=== PATIENT | female | born 1945 | race Caucasian/White ===

== ENCOUNTER 2017-03-07 11:19 | Emergency (ER) | payer OTHER, SELFPAY ==
[2017-03-07 11:22] VITALS: RESP 18; TEMP 98.2; O2SAT 98; BMI 36.6
--- NOTE | 2017-03-07 12:03 | ED PDOC ---
Arrival/HPI - General Historian: Patient, Carpet Cleaner - History of Present Illness Time/Duration: Prior to Arrival Symptom Onset: Sudden Symptom Course: Unchanged Quality: Aching Severity Level: 5 Activities at Onset: Light Context: Walking, Street - General Chief Complaint: Trauma Time Seen by Provider: 03/07/17 11:22 - History of Present Illness Narrative History of Present Illness (Text): 03/07/17 12:00 This is a 71Y Amharic speaking F with no significant PMH here for fall. Patient is Amharic speaking, table and desk finisher is at bedside. Patient reports she was walking on [address] and took a misstep. She fell on her knees and palms of her hands. She was able to get up on her own, but came to ED for the pain. She was not feeling dizzy at the time of the fall. The patient denies CP, SOB, numbness/ tingling, n/v/d, dysuria or hematuria. She denies hitting her head or loss of consciousness. The patient does not have a PMD or insurance. 03/07/17 12:04 (Shantal Houser) Past Medical History - Provider Review Nursing Documentation Reviewed: Yes - Cardiac Hx Cardiac Disorders: No - Pulmonary Hx Respiratory Disorders: No - Neurological Hx Neurological Disorder: No - HEENT Hx HEENT Disorder: No - Renal Hx Renal Disorder: No - Endocrine/Metabolic Hx Endocrine Disorders: No - Hematological/Oncological Hx Blood Disorders: No - Integumentary Hx Dermatological Disorder: No - Musculoskeletal/Rheumatological Hx Musculoskeletal Disorders: No - Gastrointestinal Hx Gastrointestinal Disorders: No - Genitourinary/Gynecological Hx Genitourinary Disorders: No - Psychiatric Hx Psychophysiologic Disorder: No Hx Substance Use: No - Surgical History Hx Cholecystectomy: Yes Hx Hysterectomy: Yes - Anesthesia Hx Anesthesia: Yes Hx Anesthesia Reactions: No Hx Malignant Hyperthermia: No Family/Social History - Physician Review Nursing Documentation Reviewed: Yes Family/Social History: Neoplasm/Cancer (breast) Smoking Status: Current Some Days Smoker Hx Alcohol Use: No Hx Substance Use: No Allergies/Home Meds Allergies/Adverse Reactions: Allergies No Known Allergies Allergy (Verified 03/07/17 11:41) Home Medications: Home Meds Medication Instructions Recorded Confirmed No Known Home Med 03/07/17 03/07/17 Review of Systems - Physician Review All systems were reviewed & negative as marked: Yes - Review of Systems Constitutional: Normal. absent: Fatigue, Fevers Eyes: Normal. absent: Vision Changes ENT: Normal. absent: Hearing Changes Respiratory: Normal. absent: SOB, Cough Cardiovascular: Normal. absent: Chest Pain, Palpitations Gastrointestinal: Normal. absent: Abdominal Pain, Diarrhea, Nausea, Vomiting Genitourinary Female: Normal. absent: Dysuria, Frequency, Hematuria Musculoskeletal: Arthralgias Skin: Other. absent: Rash, Pruritis (abrasion of hands and knees ) Neurological: Normal. absent: Headache Endocrine: Normal. absent: Diaphoresis Hemo/Lymphatic: Normal. absent: Adenopathy Psychiatric: Normal. absent: Anxiety, Depression Physical Exam Vital Signs Reviewed: Yes Temperature: Afebrile Blood Pressure: Normal Pulse: Regular Respiratory Rate: Normal Appearance: Positive for: Well-Appearing, Non-Toxic, Comfortable Pain Distress: None Mental Status: Positive for: Alert and Oriented X 3 - Systems Exam Head: Present: Atraumatic, Normocephalic Pupils: Present: PERRL Extroacular Muscles: Present: EOMI Conjunctiva: Present: Normal Mouth: Present: Moist Mucous Membranes Neck: Present: Normal Range of Motion Respiratory/Chest: Present: Clear to Auscultation, Good Air Exchange. No: Respiratory Distress, Accessory Muscle Use Cardiovascular: Present: Regular Rate and Rhythm, Normal S1, S2. No: Murmurs Abdomen: Present: Normal Bowel Sounds. No: Tenderness, Distention, Peritoneal Signs Back: Present: Normal Inspection Upper Extremity: Present: Tenderness, Other (scrapes on palms of hands bilaterally ). No: Cyanosis, Edema Lower Extremity: Present: Tenderness, Swelling (knees bilaterally ), Other ( abrasion on knees bilaterally no bleeding ) Neurological: Present: GCS=15, CN II-XII Intact, Speech Normal Skin: Present: Warm, Dry, Normal Color, Abrasion (palms and knees bilaterally ) . No: Rashes Psychiatric: Present: Alert, Oriented x 3, Normal Insight, Normal Concentration Vital Signs Temp Pulse Resp BP Pulse Ox 03/07/17 11:22 98.2 F 86 18 142/82 98 Medical Decision Making Re-evaluation Time: 12:49 Reassessment Condition: Unchanged - RAD Interpretation Epitaxial Reactor Operator: ED Physician ED Course and Treatment: 03/07/17 12:44 Seen and examined with the resident. Our history and physical exam reveals a woman who suffered a mechanical fall on the sidewalk injuring both hands and both knees. Carpet Cleaner required. Patient is in no distress. Very superficial abrasions. (Harinder Fleming) 03/07/17 12:07 Impression: This is a 71Y Amharic F with no PMH here for bilateral hand and knee pain s/p mechanical fall prior to arrival. Denies hitting head or LOC. Plan: -- XR of knees bilaterally -- XR of hand and wrist bilaterally --Reassess Prior Visits: Notes and results from previous visits were reviewed. Discharge Instructions: Re-evaluation. Patient feels better. Discussed results and plan with patient who expresses understanding. All questions answered and there is agreement with the plan to discharge home with instructions. Patient stable for discharge. Return if symptoms persist or worsen. ( Shantal Houser) - RAD Interpretation Narrative RAD Interpretations (Text): 03/07/17 12:49 Hand, Wrist and Knee XR negative for fracture bilaterally. 03/07/17 12:49 (Shantal Houser) Radiology Orders: 03/07/17 11:49 HAND 3 VIEWS BI [RAD] Stat WRIST 3 VIEWS BI [RAD] Stat KNEES BILATERAL [RAD] Stat - Medication Orders Current Medication Orders: Acetaminophen (Tylenol 325mg Tab) 650 mg PO STAT STA Stop: 03/07/17 12:49 Disposition/Present on Arrival - Present on Arrival Any Indicators Present on Arrival: No History of DVT/PE: No History of Uncontrolled Diabetes: No Urinary Catheter: No History of Decub. Ulcer: No History Surgical Site Infection Following: None - Disposition Have Diagnosis and Disposition been Completed?: Yes Disposition Time: 12:49 Patient Plan: Discharge - Disposition Diagnosis: Fall Disposition: HOME/ ROUTINE Condition: FAIR Discharge Instructions (ExitCare): Fall Prevention (ED) Print Language: SLOVENIAN Additional Instructions: Ms. Dong, thank you for letting us take care of you today. Your provider was Dr. Houser. You were treated for mechanical fall. The emergency medical care you received today was directed at your acute symptoms. If you were prescribed any medication, please fill it and take as directed. It may take several days for your symptoms to resolve. Return to the Emergency Department if your symptoms worsen, do not improve, or if you have any other problems. Please contact your doctor or call one of the physicians/clinics you have been referred to that are listed on the Patient Visit Information form that is included in your discharge packet. Bring any paperwork you were given at discharge with you along with any medications you are taking to your follow up visit. Our treatment cannot replace ongoing medical care by a primary care provider (PCP) outside of the emergency department. Thank you for allowing the [facility] team to be part of your care today. If you had an X-Ray or CT scan: A Radiologist will review the ED reading if any change in treatment is needed we will contact you. Please take Tylenol as needed for pain. Referrals: PCP,NO [Primary Care Provider] - Follow up with primary [facility] [Outside] - Follow up with primary [facility]] - Follow up with primary
[2017-03-07 13:09] VITALS: BP 141/80; PULSE 80
--- NOTE | 2017-03-07 14:22 | RAD ---
PROCEDURE: Bilateral Wrists Radiographs. HISTORY: Fall COMPARISON: None. FINDINGS: BONES: Right Carpal Bones: Normal. No fracture or degenerative changes. Left Carpal Bones: Normal. No fracture or degenerative changes. Right Distal Radius and Ulna: No fracture or degenerative changes. Left Distal Radius and Ulna: No fracture or degenerative changes. JOINT SPACES: Right Wrist: Normal. No degenerative changes. Left Wrist: Normal. No degenerative changes. SOFT TISSUES: Right Wrist: Normal. Left Wrist: Normal. OTHER FINDINGS: None. IMPRESSION: No acute fracture or dislocation.
--- NOTE | 2017-03-07 14:23 | RAD ---
PROCEDURE: Bilateral hand radiographs. HISTORY: Fall COMPARISON: None. FINDINGS: BONES: Right Hand: Normal. No osteoarthritic changes. Left Hand: Normal. No osteoarthritic changes. JOINTS: Right Hand: Normal. Left Hand: Normal. SOFT TISSUES: Right Hand: Normal. Left Hand: Normal. OTHER FINDINGS: None. IMPRESSION: No acute fracture or dislocation.
--- NOTE | 2017-03-07 14:25 | RAD ---
PROCEDURE: Bilateral Knee Radiographs. HISTORY: Fall COMPARISON: None. FINDINGS: BONES: Right Knee: Bone alignment and mineralization are normal. No acute fracture or bone destruction. Left Knee: Bone alignment and mineralization are normal. No acute fracture or bone destruction. JOINTS: Right Knee: Moderate tricompartmental degenerative osteoarthrosis, worse in the medial compartment with severe reduced joint space. Left knee: Moderate tricompartmental degenerative osteoarthrosis, worse in the medial compartment with severe reduced joint space. SOFT TISSUES: Right Knee: Normal. Left Knee: Normal. JOINT EFFUSION: Right Knee: Small suprapatellar joint effusion. Left Knee: Small suprapatellar joint effusion. OTHER FINDINGS: None. IMPRESSION: Moderate tricompartmental degenerative osteoarthrosis, worse in the medial compartments. Small suprapatellar joint effusions. No acute fracture or dislocation.
== END 2017-03-07 13:08 | disposition home or self-care (01) ==
LOC: ED 11:19
DX: Z04.3 Encounter for examination and observation following other accident (principal); W18.30XA Fall on same level, unspecified, initial encounter; Y93.89 Activity, other specified; Y92.488 Other paved roadways as the place of occurrence of the external cause